=== PATIENT | male | born 1990 | race Caucasian/White ===

== ENCOUNTER → 2019-12-21 09:19 | Outpatient (BNVA) | payer OTHER, SELFPAY | PROVIDERS: Family Provider Nurse Practitioner Family; Visit Provider Nurse Practitioner Family | DX: Z11.59 Encounter for screening for other viral diseases (principal) | CPT/HCPCS: 87635 ==

== ENCOUNTER 2024-06-10 07:37 | Outpatient (RCR) | payer OTHER, SELFPAY | END 2024-07-06 23:59 | disposition home or self-care (01) | LOC: SPT 07:37 | PROVIDERS: Visit Provider Family Medicine | DX: S83.241D Other tear of medial meniscus, current injury, right knee, subsequent encounter (principal); X58.XXXD Exposure to other specified factors, subsequent encounter | CPT/HCPCS: 97110; 97112; 97161 ==